=== PATIENT | female | born 1995 | race Hispanic/Latino ===

== ENCOUNTER 2019-01-21 12:01 | Day surgery (SDC) | payer OTHER ==
[2019-01-21 12:41] VITALS: BMI 28.0
[2019-01-21] MEDS ORDERED: hydrALAZINE 20 MG/ML VIAL SLOW IVP PRN (15:55)
--- NOTE | 2019-01-21 16:20 | PRG ---
DATE OF SERVICE: 01/21/2019 TIME OF SERVICE: 1545 hours. PRESENTING COMPLAINT: Contractions at 38 to 39 weeks' gestation. HISTORY OF PRESENT ILLNESS: Ms. Rg presents complaining of contractions since 0600 hours. She denies leakage of fluid. She denies rupture of membranes. OBSTETRICS AND GYNECOLOGY HISTORY: Primigravida. The patient is blood type O positive, antibody negative. Pap negative. Rubella immune. VDRL nonreactive. Hepatitis B, GC, and chlamydia negative. Group B strep negative. KODY is 12/29. She has induction scheduled near her KODY with Dr. Bosch. PAST MEDICAL HISTORY: None. PAST SURGICAL HISTORY: None. ALLERGIES: PENICILLIN AND PISTACHIOS. MEDICATIONS: vitamins. SOCIAL HISTORY: Denies tobacco, alcohol, or illicit drug use. FAMILY HISTORY: Noncontributory. REVIEW OF SYSTEMS: Noncontributory. PHYSICAL EXAMINATION: GENERAL: This is a white female, in no acute distress. VITAL SIGNS: 128/75, pulse 81, respirations 18, and temperature 98.4. HEENT: Within normal limits. LUNGS: Clear to auscultation bilaterally. HEART: Regular rate and rhythm. ABDOMEN: Soft and nontender with contractions about every 5 to 7 minutes. Vulva without lesions. Vagina without discharge. Cervical exam by RN was 2 to 3, 75, and -2, cephalic, bag of water intact. The patient has a category 1 heart rate tracing. The patient was allowed to walk every 3 hour. At one recheck each time had no change in her cervical exam with a category 1 tracing. IMPRESSION: Latent labor at 38 to 39 weeks gestation. No evidence of active labor with reassuring heart rate tracing. PLAN: Discharge home with ER precautions. Keep scheduled followup with Dr. Bosch. Job ID: [id number]
== END 2019-01-21 15:55 | disposition home health service (06) ==
LOC: L&D/OP 12:01
PROVIDERS: ATTEND Obstetrics & Gynecology
DX: O47.1 False labor at or after 37 completed weeks of gestation (principal); Z3A.00 Weeks of gestation of pregnancy not specified; Z88.0 Allergy status to penicillin; Z91.018 Allergy to other foods
CPT/HCPCS: 99283

== ENCOUNTER 2019-01-22 10:46 | Day surgery (SDC) | payer OTHER ==
[2019-01-22 11:29] VITALS: BP 137/80; TEMP 98.3; BMI 28.0
[2019-01-22] MEDS ORDERED: hydrALAZINE 20 MG/ML VIAL SLOW IVP PRN (15:00)
[2019-01-22] MEDS ORDERED: Morphine 10 MG/ML VIAL IM SCH (15:15)
[2019-01-22] MEDS ORDERED: Ondansetron ODT 8 MG TAB SL SCH (15:15)
--- NOTE | 2019-01-23 08:01 | PRG ---
DATE OF SERVICE: PRIMARY [employer] APPLICATIONS MANAGER: Gianfranco Bosch DO, MS CHIEF COMPLAINT: Abdominal pain. HISTORY OF PRESENT ILLNESS: The patient is a 23-year-old, G1, P0 female with an intrauterine at 39 weeks today, who is presenting with uterine contractions. The patient reports that these contractions had been present since yesterday. She was noted yesterday here in Labor and Delivery to have a cervical exam of 2.5, 75% effacement, and -1 station. She denies any vaginal bleeding or leakage of fluid. She does report kind of a mucusy discharge. The patient denies any fever, fall, headache, chest pain, shortness of breath, nausea, vomiting, diarrhea, constipation, hip problems, knee problems, muscle weakness, vaginal bleeding, leakage of fluid, urinary urgency or frequency. PAST MEDICAL HISTORY: Negative. PAST SURGICAL HISTORY: Negative. ALLERGIES: PENICILLIN. SOCIAL HISTORY: Denies drug, alcohol or tobacco use. OB LABS: Blood type is O positive. Antibody screen is negative. VDRL in the first trimester is nonreactive. Hepatitis B surface antigen in the first trimester is negative. HIV in the first trimester is negative. She is rubella immune. Diabetic screen is 149 for the 1-hour test; 95, 122, 144, 75 for 3-hour test. In the third trimester, her VDRL and HIV are negative. She is group B strep negative. REVIEW OF SYSTEMS: As per HPI. PHYSICAL EXAMINATION: VITAL SIGNS: Blood pressure 137/80, heart rate 74, respiratory rate 18, and temperature 98.3. GENERAL: She appears to be in no acute distress. She is alert, oriented, cooperative, and pleasant to interact with. HEENT: Head is normocephalic and atraumatic. LUNGS: Clear to auscultation bilaterally. HEART: Regular rate and rhythm. ABDOMEN: Gravid, soft, and nontender. EXTREMITIES: Nontender and nonedematous. CERVIX: Cervical exam per nursing staff is 3, 75, -1 station; 4 hours later is unchanged at 3, 75 and -1 station. heart tracing shows a baseline in the 130s with moderate long-term variability, positive 15 x 15 accelerations, no decelerations. Contractions are irregular about every 2 to 6 minutes. ASSESSMENT AND PLAN: The patient is a 23-year-old primipara, who was presenting with uterine contractions and is likely experiencing late in labor. Fetus has a category 1 tracing and reactive NST. The patient has been given term labor precautions and is being discharged to home. Job ID: [id number]
== END 2019-01-22 15:40 | disposition home or self-care (01) ==
LOC: L&D/OP 10:46
PROVIDERS: ATTEND Obstetrics & Gynecology
DX: O47.1 False labor at or after 37 completed weeks of gestation (principal); O99.89 Other specified diseases and conditions complicating pregnancy, childbirth and the puerperium; N89.8 Other specified noninflammatory disorders of vagina; Z3A.39 39 weeks gestation of pregnancy; Z88.0 Allergy status to penicillin; Z91.018 Allergy to other foods
CPT/HCPCS: J2270

== ENCOUNTER 2019-01-22 19:05 | Inpatient (IN) | payer OTHER ==
[~2019-01-22 19:05] MED LIST: Bupivacaine HCl 0.25%/Epi 0.0005/PF 10 ML VIAL FS ONE
[2019-01-22] MEDS ORDERED: Ondansetron PF 4 MG/2 ML Vial IVP PRN (19:50)
[2019-01-22] MEDS ORDERED: Lidocaine 1% (PF) 30 ML VIAL SC PRN (19:50)
[2019-01-22] MEDS ORDERED: Butorphanol Tartrate 1 MG/ML VIAL SLOW IVP PRN (19:50)
[2019-01-22] MEDS ORDERED: Ibuprofen 800 MG TAB PO PRN (19:50)
[2019-01-22] MEDS ORDERED: HYDROcodone/Acetaminophen 5/325 mg Tablet PO PRN ×2 (19:50)
[2019-01-22] MEDS ORDERED: hydrALAZINE 20 MG/ML VIAL SLOW IVP PRN (19:50)
[2019-01-22] MEDS ORDERED: Promethazine HCl 25 MG/ML VIAL IM PRN (19:50)
[2019-01-22 19:57] VITALS: BMI 28.0
[2019-01-22] MEDS ORDERED: NS w/ Oxytocin 10 units 500 ML IV SCH ×2 (20:00)
[2019-01-22] MEDS: Lactated Ringer's 1,000 ML IV SCH ×2 (20:36→21:24)
[2019-01-22] MEDS ORDERED: Fentanyl 4 mcg/Bup 0.1% Cadd 100 ML ONE (21:04)
[2019-01-22 21:05] LABS: Hemoglobin 14.2 g/dL (12.0-16.0); Mean Corpuscular HGB CONC 34.1 g/dL (32.0-36.0); Mean Corpuscular Hemoglobin 30.5 pg (27.0-31.0); Mean Corpuscular Volume 89.3 fL (78.0-98.0); Mean Platelet Volume 8.3 fL (7.4-10.4); Platelet Count 183 thou/uL (130-400); RBC Distribution Width 15.9 % (11.5-14.5); Red Blood Cell (RBC) Count 4.66 mill/uL (4.20-5.40); White Blood Cell (WBC) Count 12.9 thou/uL (4.8-10.8)
[2019-01-22] MEDS ORDERED: Fentanyl 100 MCG/2 ML VIAL ONE (21:17)
[2019-01-22 21:36] LABS: Syphilis Antibody Nonreactive (Nonreactive); Syphilis Antibody Index 0.04 S/CO (<1.00 Non-Reactive)
[2019-01-23 00:33] LABS: HBSAg Index 0.12 S/CO (0-0.99); Hep B Surf Ag Non-Reactive S/CO (NonReactive)
[2019-01-23] MEDS ORDERED: Acetaminophen 325 MG TAB PO PRN (01:51)
[2019-01-23] MEDS ORDERED: Lactated Ringer's 500 ML IV PRN (01:51)
[2019-01-23] MEDS ORDERED: ePHEDrine/0.9% NaCl/PF SYRINGE 50 mg/10 ml SLOW IVP PRN (01:51)
[2019-01-23] MEDS ORDERED: Promethazine HCl 25 MG/ML VIAL IM PRN (01:51)
[2019-01-23] MEDS ORDERED: Naloxone HCl 0.4 mg/ml Vial IVP PRN ×2 (01:51)
[2019-01-23] MEDS ORDERED: Ondansetron PF 4 MG/2 ML Vial IVP PRN ×2 (01:51→08:10)
[2019-01-23] MEDS ORDERED: diphenhydrAMINE 50 MG/ML VIAL IVP PRN (01:51)
[2019-01-23] MEDS ORDERED: Communication Order-Pharmacy FS SCH (02:00)
[2019-01-23] MEDS ORDERED: Fentanyl 4 mcg/Bupivacaine 0.1% Cassette 100 ML EPIDURAL SCH (02:00)
[2019-01-23] MEDS: NS / Oxytocin 40 units/1000ml 1,000 ML IV PRN ×2 (05:37→06:52)
--- NOTE | 2019-01-23 06:23 | DN ---
DATE OF PROCEDURE: 01/23/2019 The patient delivered a female infant on 01/23/2019 at 0533 hours by an uncomplicated term spontaneous vaginal delivery. Apgars were 8 and 9. Weight is pending at time of discussion. Placenta delivered spontaneously followed by Pitocin infusion. There was a small hymenal laceration repaired with a [id number] for hemostasis. Delivering physician is Dr. Abhishek Renae. Estimated blood loss is 200 mL. Counts are correct. Complications none. Mother and baby are both stable in the room in the immediate . Job ID: [id number]
[2019-01-23] MEDS ORDERED: diphenhydrAMINE 25 MG CAP PO PRN (08:10)
[2019-01-23] MEDS ORDERED: Adacel (T-DAP) 0.5 ML SYRINGE IM ONE (08:10)
[2019-01-23] MEDS ORDERED: Milk Of Magnesia 30 ML UDCUP PO PRN (08:10)
[2019-01-23] MEDS ORDERED: NS / Oxytocin 40 units/1000ml 1,000 ML IV SCH (08:10)
[2019-01-23] MEDS ORDERED: Bisacodyl 10 MG SUPP PR PRN (08:10)
[2019-01-23] MEDS ORDERED: Benzocaine-Menthol 82.5 ML CAN TOP PRN (08:10)
[2019-01-23] MEDS ORDERED: hydrALAZINE 20 MG/ML VIAL SLOW IVP PRN (08:10)
[2019-01-23] MEDS ORDERED: Lanolin Ointment 7 GM TUBE TOP PRN (08:10)
[2019-01-23] MEDS ORDERED: NS / Oxytocin 40 units/1000ml 1,000 ML ONE (08:23)
[2019-01-23] MEDS: Ferrous Sulfate 325 MG TAB PO SCH ×2 (09:47→21:38)
[2019-01-23] MEDS: Prenatal Vitamin 1 TAB PO SCH (09:48)
[2019-01-23] MEDS: Docusate Calcium (SURFAK) 240 MG CAP PO SCH ×2 (09:48→21:38)
[2019-01-23] MEDS: Ibuprofen 800 MG TAB PO SCH ×3 (10:31→21:38)
[2019-01-24 04:40] LABS: #Basophils 0.1 thou/uL (0.0-0.2); #Eosinphils 0.2 thou/uL (0.0-0.7); #Monocytes 0.7 thou/uL (0.11-0.59); #Neutrophils 9.8 thou/uL (1.40-6.50); %Basophils 0.6 % (0.0-1.0); %Eosinophils 1.5 % (0.0-10.0); %Lymphocytes 21.8 % (21.0-51.0); %Neutrophils 71.2 % (42.0-75.0); Hemoglobin 11.4 g/dL (12.0-16.0); Mean Corpuscular HGB CONC 33.6 g/dL (32.0-36.0); Mean Corpuscular Hemoglobin 30.5 pg (27.0-31.0); Mean Corpuscular Volume 90.7 fL (78.0-98.0); Mean Platelet Volume 8.1 fL (7.4-10.4); Platelet Count 160 thou/uL (130-400); RBC Distribution Width 15.9 % (11.5-14.5); Red Blood Cell (RBC) Count 3.74 mill/uL (4.20-5.40); White Blood Cell (WBC) Count 13.7 thou/uL (4.8-10.8)
[2019-01-24] MEDS: Ibuprofen 800 MG TAB PO SCH ×3 (05:56→21:18)
--- NOTE | 2019-01-24 08:15 | PDOC.PP ---
Post Progress Note Post Day #: 1 Subjective: doing well, some cramping with nursing, latching well PO intake tolerated: yes Flatus: yes Ambulation: yes Vital Signs (12 hours) Temp Pulse Resp BP Pulse Ox 01/24/19 08:06 98.2 F 70 20 114/75 98 01/24/19 03:51 97.9 F 67 18 109/58 L 01/23/19 23:57 98.1 F 74 18 110/55 L 01/23/19 20:23 96 Weight Weight 179 lb - Physical Examination General: NAD Respiratory: non-labored breathing Abdominal: no distention Fundus firm & at: below umb Psychiatric: A&Ox3, normal affect Result Diagrams: 01/24/19 03:47 Additional Labs: Post Labs Blood Type O POSITIVE 01/22/19 21:28 Hep Bs Antigen Non-Reactive S/CO (NonReactive) 01/22/19 20:51 (1) 39 weeks gestation of Code(s): Z3A.39 - 39 WEEKS GESTATION OF Status: Acute (2) Vaginal delivery Code(s): O80 - ENCOUNTER FOR FULL-TERM UNCOMPLICATED DELIVERY Status: Acute - Assessment/Plan PPD1 doing well, plan for DC tomorrow.
[2019-01-24] MEDS: Ferrous Sulfate 325 MG TAB PO SCH ×2 (09:04→14:51)
[2019-01-24] MEDS: Docusate Calcium (SURFAK) 240 MG CAP PO SCH ×2 (09:09→21:18)
[2019-01-24] MEDS: Prenatal Vitamin 1 TAB PO SCH (09:09)
[2019-01-25] MEDS: Ibuprofen 800 MG TAB PO SCH (06:14)
[2019-01-25 08:18] VITALS: BP 128/75; TEMP 98.4
--- NOTE | 2019-01-25 08:33 | PDOC.PP ---
Post Progress Note Post Day #: 2 Subjective: doing well, no concerns, ready for DC PO intake tolerated: yes Flatus: yes Ambulation: yes Vital Signs (12 hours) Temp Pulse Resp BP Pulse Ox 01/25/19 08:17 98.4 F 66 20 128/75 100 Weight Weight 179 lb - Physical Examination General: NAD Respiratory: non-labored breathing Abdominal: no distention Psychiatric: A&Ox3, normal affect Result Diagrams: 01/24/19 03:47 Additional Labs: Post Labs Blood Type O POSITIVE 01/22/19 21:28 Hep Bs Antigen Non-Reactive S/CO (NonReactive) 01/22/19 20:51 (1) 39 weeks gestation of Code(s): Z3A.39 - 39 WEEKS GESTATION OF Status: Acute (2) Vaginal delivery Code(s): O80 - ENCOUNTER FOR FULL-TERM UNCOMPLICATED DELIVERY Status: Acute - Assessment/Plan PPD2 doing well, plan for DC today.
[2019-01-25] MEDS: Docusate Calcium (SURFAK) 240 MG CAP PO SCH (09:07)
[2019-01-25] MEDS: Ferrous Sulfate 325 MG TAB PO SCH (09:07)
[2019-01-25] MEDS: Prenatal Vitamin 1 TAB PO SCH (09:07)
== END 2019-01-25 12:40 | disposition home or self-care (01) | DRG 807 ==
LOC: L&D/OP 19:05 → L&D 21:14 → 3SW 01-23 09:22
PROVIDERS: ADMIT Obstetrics & Gynecology; ATTEND Obstetrics & Gynecology
PROC: 10E0XZZ Delivery of Products of Conception, External Approach (ICD-10-PCS; principal; 2019-01-23)
PROC: 0HQ9XZZ Repair Perineum Skin, External Approach (ICD-10-PCS; 2019-01-23)
DX: O70.0 First degree perineal laceration during delivery (principal); Z37.0 Single live birth; Z3A.39 39 weeks gestation of pregnancy
CPT/HCPCS: 36415; 51702; 85025; 85027; 86780; 86850; 86900; 86901; 87340; 96372; 99283; 99285; J2270; J3010